=== PATIENT | female | born 1960 | race Caucasian/White ===

== ENCOUNTER 2017-11-03 16:54 | Outpatient (CLI) | payer OTHER ==
--- NOTE | 2017-11-03 17:33 | XRAY Report ---
EXAM: ABDOMEN RADIOGRAPHY EXAM DATE: 11/03/2017 05:14 PM. CLINICAL HISTORY: FOREIGN BODY IN VULVA AND VAGINA. COMPARISON: None. TECHNIQUE: 1 view. FINDINGS: Bowel Gas Pattern: No dilated small bowel. There is moderate stool within colon. Other: No evidence of radiopaque foreign body. IMPRESSION: 1. No evidence of radiopaque foreign body. 2. There is moderate stool within colon. [facility] Referring Provider Line: [phone] SITE ID: [id number]
== END 2017-11-03 16:55 | disposition home or self-care (01) ==
LOC: DI 16:54
PROVIDERS: ATTEND Emergency Medicine
DX: T19.2XXA Foreign body in vulva and vagina, initial encounter (principal)
CPT/HCPCS: 74018

== ENCOUNTER 2019-09-30 19:22 | Emergency (ER) | payer MEDICAID ==
[2019-09-30 20:07] LABS: BILIRUBIN,URINE NEGATIVE (NEGATIVE); GLUCOSE, URINE (UA) 100 mg/dL (NEGATIVE); KETONES,URINE (UA) TRACE mg/dL (NEGATIVE); LEUKOCYTE ESTERASE, URINE TRACE (NEGATIVE); NITRITE,URINE NEGATIVE (NEGATIVE); OCCULT BLOOD,URINE SMALL (NEGATIVE); PROTEIN,URINE 30 mg/dL (NEGATIVE); UROBILINOGEN,URINE 4 E.U./dL (NORMAL)
[2019-09-30] MEDS ORDERED: predniSONE 20 MG TABLET PO STA (20:07)
[2019-09-30] MEDS ORDERED: IPRATROPIUM/ALBUTEROL 3 ML NEB INH STA (20:07)
[2019-09-30 20:10] LABS: CLARITY,URINE HAZY (CLEAR)
[2019-09-30 20:19] LABS: AMORPHOUS SEDIMENT,UR Few /LPF; BACTERIA,URINE Few /HPF (None Seen); MUCUS,URINE Few Strands; SQUAMOUS EPITHELIAL CELL,UR MOD Squamous (<= Few)
--- NOTE | 2019-09-30 20:34 | ED Physician Documentation ---
PD HPI URI - Stated complaint Stated Complaint: BACK PX/NAUSEA/SOA - Chief complaint Chief Complaint: Back Pain - History obtained from History obtained from: Patient - History of Present Illness Timing - onset: How many days ago (several days) Timing duration: Days Timing details: Gradual onset Pain level max: 5 Pain level now: 4 Associated symptoms: Nasal congestion, Rhinorrhea, Dry cough, Dyspnea (wheezing). No: Fever, Chills Contributing factors: Sick contact Improves by: Rest, MDI/nebulizer (albuterol) Worsened by: Activity, Breathing Recently seen: Not recently seen Review of Systems Constitutional: denies: Fever, Chills Respiratory: reports: Dyspnea, Cough, Wheezing Skin: denies: Rash Musculoskeletal: denies: Neck pain, Back pain Neurologic: denies: Headache PD PAST MEDICAL HISTORY - Past Medical History Past Medical History: Yes Other Past Medical History: rectal prolapse - Past Surgical History Past Surgical History: Yes - Present Medications Home Medications: Ambulatory Orders Medication Instructions Recorded Confirmed Methadone HCl 80 mg PO DAILY 06/12/16 06/12/16 Albuterol Sulfate [Proventil Hfa] 1 - 2 puffs IH Q4H PRN #1 09/30/19 [email or web address] Benzonatate [Tessalon Perle] 100 - 200 mg PO TID PRN #30 capsule 09/30/19 Doxycycline Hyclate 100 mg PO BID #20 capsule 09/30/19 predniSONE [Deltasone] 10 mg PO [id number] #42 tab 09/30/19 - Allergies Allergies/Adverse Reactions: Allergies Allergy/AdvReac Type Severity Reaction Status Date / Time No Known Drug Allergies Allergy Verified 09/30/19 19:36 - Social History Does the pt smoke?: Yes Smoking Status: Current every day smoker Does the pt drink ETOH?: No Does the pt have substance abuse?: Yes - Immunizations Immunizations are current?: Yes - POLST Patient has POLST: No PD ED PE NORMAL - Vitals Vital signs reviewed: Yes - General General: Alert and oriented X 3, No acute distress - HEENT HEENT: Moist mucous membranes - Neck Neck: Supple, no meningeal sign - Cardiac Cardiac: RRR - Respiratory Respiratory: No respiratory distress, Other (Diffuse rhonchi and wheezing bilaterally) - Abdomen Abdomen: Soft, Non tender, Non distended - Back Back: No CVA TTP, No spinal TTP - Derm Derm: Warm and dry - Neuro Neuro: Alert and oriented X 3 Results - Vitals Vitals: Vital Signs - 24 hr 09/30/19 09/30/19 09/30/19 19:34 20:35 21:20 Temperature 36.8 C 37.3 C Heart Rate 71 75 84 Respiratory 14 20 16 Rate Blood Pressure 143/67 H 104/57 L O2 Saturation 96 95 Oxygen O2 Source Room air - Labs Labs: Laboratory Tests 09/30/19 19:53 Urine Color YELLOW Urine Clarity HAZY Urine pH 6.0 Ur Specific [place] 1.025 Urine Protein 30 H Urine Glucose (UA) 100 H Urine Ketones TRACE Urine Occult Blood SMALL H Urine Nitrite NEGATIVE Urine Bilirubin NEGATIVE Urine Urobilinogen 4 H Ur Leukocyte Esterase TRACE H Urine RBC 6-10 H Urine WBC 0-3 Ur Squamous Epith Cells MOD Squamous H Amorphous Sediment Few Urine Bacteria Few Urine Mucus Few Strands Urine Culture Comments NOT INDICATED - Rads (name of study) cxr Radiology: Prelim report reviewed, EMP read contemporaneously, See rad report (1. A few tiny nodular opacities are seen in the right upper lobe, largest measuring 5 mm, could represent pneumonia. Pulmonary metastasis not excluded. Follow-up imaging recommended. 2. Moderate dextroscoliosis in the thoracic spine. Multiple compression fractures as above, age indeterminate. Correlate clinically. If further evaluation is warranted, an MR or CT thoracic spine could further evaluate. ) PD MEDICAL DECISION MAKING - ED course Complexity details: reviewed results, re-evaluated patient, considered differential, d/w patient ED course: Patient with what appears to be a COPD flare and pneumonia. Will place on doxycycline. Will treat with inhalers and steroids as well. She was counseled that she needs follow-up chest x-ray after treatment to ensure there are no cancerous findings in her lungs. Patient is well-appearing, nontoxic. Afebrile. No hypoxia. No respiratory distress. Feels better after nebulizer treatment here. Patient counseled regarding signs and symptoms for which I believe and urgent re-evaluation would be necessary. Patient with good understanding of and agreement to plan and is comfortable going home at this time This document was made in part using voice recognition software. While efforts are made to proofread this document, sound alike and grammatical errors may occur. Departure - Departure Disposition: 01 Home, Self Care Clinical Impression: Pneumonia Qualifiers: Pneumonia type: due to unspecified organism Laterality: right Lung location: upper lobe of lung Qualified Code(s): J18.9 - Pneumonia, unspecified organism Condition: Good Instructions: ED Pneumonia Adult Follow-Up: MARINA DUEÑAS MD [Primary Care Provider] - Within 1 week Prescriptions: Albuterol Sulfate [Proventil Hfa] 1 - 2 puffs IH Q4H PRN #1 [email or web address] PRN Reason: Wheezing Benzonatate [Tessalon Perle] 100 - 200 mg PO TID PRN #30 capsule PRN Reason: Cough Doxycycline Hyclate 100 mg PO BID #20 capsule predniSONE [Deltasone] 10 mg PO [id number] #42 tab Comments: Take all antibiotics until gone. You need to have a repeat chest x-ray after treatment is completed to ensure resolution. You have some nodular opacities in the that may be pneumonia, but need to be followed up to ensure these are not cancerous. Follow-up with your doctor for further care. Discharge Date/Time: 09/30/19 21:16
--- NOTE | 2019-09-30 20:53 | XRAY Report ---
Reason: cough Procedure Date: 09/30/2019 Accession Number: [id number] / [id number] Procedure: XR - Chest 2 View X-Ray CPT Code: 82757 Final Report FULL RESULT: EXAM: CHEST RADIOGRAPHY EXAM DATE: 09/30/2019 08:27 PM. CLINICAL HISTORY: Cough. Shortness of breath. Mid back pain for 3 days. COMPARISON: None. TECHNIQUE: 2 views. FINDINGS: Lungs/Pleura: A few tiny nodular opacities are seen in the right upper lobe, largest measuring 5 mm. No pleural effusion or pneumothorax. Mediastinum: Heart and mediastinal contours are unremarkable. Other: Moderate dextroscoliosis in the thoracic spine. Demineralized bones. Severe T12 compression fracture. Moderate L2 and mild L3 compression fractures. Mild T11, moderate T8, T7 and T6 compression fractures. Age of these compression fractures is indeterminate. Probable bilateral nipple shadows. IMPRESSION: 1. A few tiny nodular opacities are seen in the right upper lobe, largest measuring 5 mm, could represent pneumonia. Pulmonary metastasis not excluded. Follow-up imaging recommended. 2. Moderate dextroscoliosis in the thoracic spine. Multiple compression fractures as above, age indeterminate. Correlate clinically. If further evaluation is warranted, an MR or CT thoracic spine could further evaluate. [facility]
[2019-09-30] MEDS ORDERED: DOXYCYCLINE 100 MG TABLET PO STA (21:03)
[2019-09-30 21:20] VITALS: BP 104/57
== END 2019-09-30 21:16 | disposition home or self-care (01) ==
LOC: ED 19:22
DX: J18.9 Pneumonia, unspecified organism (principal); F17.200 Nicotine dependence, unspecified, uncomplicated
CPT/HCPCS: 71046; 81001; 94640; 99284; A9270; J7512; 87086

== ENCOUNTER 2020-09-06 12:53 | Emergency (ER) | payer MEDICAID ==
--- NOTE | 2020-09-06 13:26 | ED Physician Documentation ---
PD HPI FEMALE - Stated complaint Stated Complaint: FEMALE - Chief complaint Chief Complaint: UTI - History obtained from History obtained from: Patient - History of Present Illness Timing - onset: Yesterday Timing - duration: Days (2) Timing - details: Gradual onset Pain level max: 3 Pain level max: 2 Associated symptoms: Vaginal pain, Dysuria, Hematuria. No: Fever, Chest/shoulder pain, Abdominal pain, Back pain, Pelvic pain Contributing factors: No: Exposed to STD Similar symptoms before: Has not had sx before Recently seen: Not recently seen - Additional information Additional information: Patient is a 59-year-old female who presents to the emergency department with dysuria and hematuria. She states that she has a new boyfriend and that they w ere having sex in the shower. They used soap as lubrication. Now has irritation and pain Review of Systems Constitutional: denies: Fever, Chills Skin: denies: Rash Musculoskeletal: denies: Neck pain, Back pain Neurologic: denies: Headache PD PAST MEDICAL HISTORY - Past Medical History Past Medical History: No - Past Surgical History Past Surgical History: Yes - Present Medications Home Medications: Ambulatory Orders Medication Instructions Recorded Confirmed Methadone HCl 140 mg PO DAILY 06/12/16 09/06/20 Albuterol Sulfate [Proventil Hfa] 1 - 2 puffs IH Q4H PRN #1 09/30/19 09/06/20 [email or web address] Nitrofurantoin Monohyd/M-Cryst 100 mg PO BID #10 capsule 09/06/20 [Macrobid 100 mg Capsule] - Allergies Allergies/Adverse Reactions: Allergies Allergy/AdvReac Type Severity Reaction Status Date / Time No Known Drug Allergies Allergy Verified 09/06/20 12:58 - Living Situation Living Arrangement: reports: At home - Social History Does the pt smoke?: Yes Smoking Status: Current every day smoker Does the pt drink ETOH?: No Does the pt have substance abuse?: Yes - Immunizations Immunizations are current?: Yes - POLST Patient has POLST: No PD ED PE NORMAL - Vitals Vital signs reviewed: Yes - General General: Alert and oriented X 3, No acute distress - HEENT HEENT: Moist mucous membranes - Neck Neck: Supple, no meningeal sign - Abdomen Abdomen: Soft, Non tender, Non distended - Back Back: No CVA TTP - Derm Derm: Warm and dry - Neuro Neuro: Alert and oriented X 3 - Psych Psych: Normal mood Results - Vitals Vitals: Vital Signs - 24 hr 09/06/20 09/06/20 12:55 13:56 Temperature 36.9 C 36.8 C Heart Rate 68 66 Respiratory 18 16 Rate Blood Pressure 132/66 H 130/60 O2 Saturation 99 100 Oxygen O2 Source Room air - Labs Labs: Laboratory Tests 09/06/20 09/06/20 13:04 13:04 Urine Color YELLOW Urine Clarity CLEAR Urine pH 6.5 Ur Specific [place] <=1.005 Urine Protein NEGATIVE Urine Glucose (UA) NEGATIVE Urine Ketones NEGATIVE Urine Occult Blood MODERATE H Urine Nitrite NEGATIVE Urine Bilirubin NEGATIVE Urine Urobilinogen 0.2 (NORMAL) Ur Leukocyte Esterase SMALL H Urine RBC 0-5 Urine WBC 0-3 Ur Squamous Epith Cells MOD Squamous H Urine Bacteria Rare Ur Microscopic Review INDICATED Urine Culture Comments NOT INDICATED Urine HCG, Qual NEGATIVE PD MEDICAL DECISION MAKING - ED course Complexity details: reviewed results, considered differential, d/w patient ED course: Patient with a UTI. We will place on antibiotics. She will likely has some chemical irritation as well. Recommend that she use water or silicone based lubricants rather than soap. Patient counseled regarding signs and symptoms for which I believe and urgent re-evaluation would be necessary. Patient with good understanding of and agreement to plan and is comfortable going home at this time This document was made in part using voice recognition software. While efforts are made to proofread this document, sound alike and grammatical errors may occur. Departure - Departure Disposition: 01 Home, Self Care Clinical Impression: Urinary tract infection Qualifiers: Urinary tract infection type: acute cystitis Hematuria presence: with hematuria Qualified Code(s): N30.01 - Acute cystitis with hematuria Condition: Good Instructions: ED UTI Cystitis Female Follow-Up: your,doctor in 1 week [Other] Prescriptions: Nitrofurantoin Monohyd/M-Cryst [Macrobid 100 mg Capsule] 100 mg PO BID #10 caps ule Comments: Take all antibiotics until gone. Return if you worsen. Follow-up with your doctor for further care. Discharge Date/Time: 09/06/20 13:56
[2020-09-06 13:38] LABS: BILIRUBIN,URINE NEGATIVE (NEGATIVE); GLUCOSE, URINE (UA) NEGATIVE (NEGATIVE); KETONES,URINE (UA) NEGATIVE (NEGATIVE); LEUKOCYTE ESTERASE, URINE SMALL (NEGATIVE); NITRITE,URINE NEGATIVE (NEGATIVE); OCCULT BLOOD,URINE MODERATE (NEGATIVE); PH,URINE 6.5 PH (5.0-7.5); PROTEIN,URINE NEGATIVE (NEGATIVE); UROBILINOGEN,URINE 0.2 (NORMAL) E.U./dL (NORMAL)
[2020-09-06 13:43] LABS: HCG UR QUAL NEGATIVE
[2020-09-06 13:46] LABS: CLARITY,URINE CLEAR (CLEAR)
[2020-09-06 13:50] LABS: BACTERIA,URINE Rare /HPF (None Seen); RBC,URINE 0-5 /HPF (0-5); SQUAMOUS EPITHELIAL CELL,UR MOD Squamous (<= Few)
[2020-09-06 13:57] VITALS: BP 130/60
== END 2020-09-06 13:56 | disposition home or self-care (01) ==
LOC: ED 12:53
DX: N30.01 Acute cystitis with hematuria (principal); F17.200 Nicotine dependence, unspecified, uncomplicated
CPT/HCPCS: 81001; 81003; 81025; 87086; 99283; 99284

== ENCOUNTER 2020-11-03 14:08 | Emergency (ER) | payer MEDICAID ==
[2020-11-03 14:43] LABS: BILIRUBIN,URINE NEGATIVE (NEGATIVE); CLARITY,URINE HAZY (CLEAR); GLUCOSE, URINE (UA) NEGATIVE (NEGATIVE); KETONES,URINE (UA) NEGATIVE (NEGATIVE); LEUKOCYTE ESTERASE, URINE SMALL (NEGATIVE); NITRITE,URINE NEGATIVE (NEGATIVE); OCCULT BLOOD,URINE NEGATIVE (NEGATIVE); PROTEIN,URINE NEGATIVE (NEGATIVE); UROBILINOGEN,URINE 0.2 (NORMAL) E.U./dL (NORMAL)
--- NOTE | 2020-11-03 14:48 | ED Physician Documentation ---
PD HPI FEMALE - Stated complaint Stated Complaint: FEMALE - Chief complaint Chief Complaint: UTI - History obtained from History obtained from: Patient - History of Present Illness Timing - onset: How many days ago (2) Timing - duration: Days (2) Timing - details: Gradual onset Pain level max: 3 Pain level max: 2 Associated symptoms: No: Fever, Vaginal bleeding, Vaginal discharge - Additional information Additional information: Patient is a 60-year-old female who presents to the emergency department stating that she used a Vaseline for sexual intercourse with her boyfriend and now has a vaginal discomfort. Also has pain and burning with urination. No vaginal bleeding or discharge. Review of Systems Constitutional: denies: Fever, Chills Ears: denies: Ear pain Throat: denies: Sore throat GI: denies: Vomiting, Diarrhea Skin: denies: Rash Musculoskeletal: denies: Neck pain, Back pain PD PAST MEDICAL HISTORY - Past Medical History Past Medical History: Yes Cardiovascular: None Respiratory: None Neuro: None Endocrine/Autoimmune: None [employer]: None : None HEENT: None Psych: None Musculoskeletal: None Derm: None - Past Surgical History Past Surgical History: Yes - Present Medications Home Medications: Ambulatory Orders Medication Instructions Recorded Confirmed Methadone HCl 140 mg PO DAILY 06/12/16 09/06/20 Albuterol Sulfate [Proventil Hfa] 1 - 2 puffs IH Q4H PRN #1 09/30/19 09/06/20 [email or web address] Nitrofurantoin Monohyd/M-Cryst 100 mg PO BID #10 capsule 09/06/20 [Macrobid 100 mg Capsule] Nitrofurantoin Monohyd/M-Cryst 100 mg PO BID #10 cap 11/03/20 [Macrobid 100 mg Capsule] Phenazopyridine HCl [Pyridium] 200 mg PO TID PRN #6 tab 11/03/20 - Allergies Allergies/Adverse Reactions: Allergies Allergy/AdvReac Type Severity Reaction Status Date / Time No Known Drug Allergies Allergy Verified 11/03/20 14:23 - Social History Does the pt smoke?: Yes Smoking Status: Current every day smoker Does the pt drink ETOH?: No Does the pt have substance abuse?: Yes - Immunizations Immunizations are current?: Yes - POLST Patient has POLST: No PD ED PE NORMAL - Vitals Vital signs reviewed: Yes - General General: Alert and oriented X 3, No acute distress - HEENT HEENT: Moist mucous membranes - Neck Neck: Supple, no meningeal sign - Cardiac Cardiac: RRR - Respiratory Respiratory: No respiratory distress - Abdomen Abdomen: Soft, Non tender, Non distended - Back Back: No CVA TTP - Derm Derm: Warm and dry - Neuro Neuro: Alert and oriented X 3 - Psych Psych: Normal mood, Normal affect Results - Vitals Vitals: Vital Signs - 24 hr 11/03/20 14:16 Temperature 36.8 C Heart Rate 62 Respiratory 15 Rate Blood Pressure 136/72 H O2 Saturation 100 Oxygen O2 Source Room air - Labs Labs: Laboratory Tests 11/03/20 14:05 Urine Color YELLOW Urine Clarity HAZY Urine pH 6.0 Ur Specific [place] 1.010 Urine Protein NEGATIVE Urine Glucose (UA) NEGATIVE Urine Ketones NEGATIVE Urine Occult Blood NEGATIVE Urine Nitrite NEGATIVE Urine Bilirubin NEGATIVE Urine Urobilinogen 0.2 (NORMAL) Ur Leukocyte Esterase SMALL H Urine RBC 0-5 Urine WBC >25 H Ur Squamous Epith Cells MOD Squamous H Urine Bacteria Moderate H Ur Microscopic Review INDICATED Urine Culture Comments NOT INDICATED PD MEDICAL DECISION MAKING - ED course Complexity details: reviewed old records, reviewed results, considered differential, d/w patient ED course: Patient with a UTI. Will place on antibiotics. Patient is well-appearing, nontoxic. Afebrile. No evidence of pyelonephritis. Recommend that she use other lubricants for sexual activity. Patient counseled regarding signs and s ymptoms for which I believe and urgent re-evaluation would be necessary. Patient with good understanding of and agreement to plan and is comfortable going home at this time This document was made in part using voice recognition software. While efforts are made to proofread this document, sound alike and grammatical errors may occur. Departure - Departure Disposition: Home, Self Care Clinical Impression: Urinary tract infection Qualifiers: Urinary tract infection type: acute cystitis Hematuria presence: without hematuria Qualified Code(s): N30.00 - Acute cystitis without hematuria Condition: Good Instructions: ED UTI Cystitis Female Follow-Up: your,doctor in 1 week [Other] Prescriptions: Nitrofurantoin Monohyd/M-Cryst [Macrobid 100 mg Capsule] 100 mg PO BID #10 cap Phenazopyridine HCl [Pyridium] 200 mg PO TID PRN #6 tab PRN Reason: dysuria Comments: Take all antibiotics until gone. Return if you worsen. Follow-up with your doctor for further care. Discharge Date/Time: 11/03/20 15:18
[2020-11-03 14:51] VITALS: BP 136/72
[2020-11-03 15:10] LABS: BACTERIA,URINE Moderate /HPF (None Seen); RBC,URINE 0-5 /HPF (0-5); SQUAMOUS EPITHELIAL CELL,UR MOD Squamous (<= Few)
[2020-11-03] MEDS ORDERED: NITROFURANTOIN MACRO 100 MG CAPSULE PO STA (15:11)
== END 2020-11-03 15:18 | disposition home or self-care (01) ==
LOC: ED 14:08
DX: N30.00 Acute cystitis without hematuria (principal); F17.200 Nicotine dependence, unspecified, uncomplicated
CPT/HCPCS: 81001; 99283; 99284; A9270; 81003; 87086